=== PATIENT | female | born 1945 | race Two or more races ===

== ENCOUNTER 2021-03-22 14:57 | Emergency (ER) | payer OTHER ==
[~2021-03-22] VITALS: Ht 157.5 cm; Wt 68.0 kg
[2021-03-22] MEDS ORDERED: JANUMET 50-1,01 EACH (15:41)
[2021-03-22] MEDS ORDERED: LISINOPRIL40 MG (15:42)
[2021-03-22] MEDS ORDERED: NORVASC5 MG (15:42)
[2021-03-22] MEDS ORDERED: KETO10TA2 PO (18:08)
[2021-03-22] MEDS ORDERED: BENADRYL ITCH28.3 G1 TOP (18:08)
[2021-03-22] MEDS ORDERED: NIX59 M1 TOP (18:08)
[2021-03-22] MEDS ORDERED: KENALOG100 GM TOP (18:08)
== END 2021-03-22 20:20 | disposition home or self-care (01) ==
LOC: ER 14:57
DX: E11.628 Type 2 diabetes mellitus with other skin complications (principal); M79.672 Pain in left foot; Z79.84 Long term (current) use of oral hypoglycemic drugs